=== PATIENT | male | born 1985 | race Caucasian/White ===

== ENCOUNTER 2020-02-16 08:58 | Emergency (ER) | payer BC ==
[2020-02-16] MEDS ORDERED: Dexamethasone 4 MG/ML SDV IVPUSH ONE (09:28)
[2020-02-16] MEDS ORDERED: Sodium Chloride 0.9% 10 ML Syringe FLUSH PRN (09:28)
--- NOTE | 2020-02-16 09:30 | EDM.PDOC ---
ED HPI GENERAL MEDICAL PROBLEM - General Chief Complaint: Respiratory Problem Stated Complaint: SHORTNESS OF BREATH Time Seen by Provider: 02/16/20 09:15 Source of Information: Reports: Patient History Limitations: Reports: No Limitations - History of Present Illness INITIAL COMMENTS - FREE TEXT/NARRATIVE: 34-year-old male presents to the ED due to increasing dyspnea over the last 2 to 3 days. He developed symptoms of loss of taste and smell with fever body aches and dry cough on February 04. He was tested positive for COVID-19 on the . To his coworkers at the [employer] also tested positive the same day suggesting they were exposed to the same source. He states his appetite remains quite poor due to loss of taste and smell. Cough is becoming slightly more productive. Feels more dyspneic on minimal exertion. Pulse oximetry used at home as his has asthma shows that he dips down into the 88 percentile with walking. He is 94% at rest in the ED. Still has occasional fevers and headaches. Throat is a little sore from coughing. Believes that he picked it up from the workplace is 3 coworkers became ill at the same time with COVID-19. Onset: Gradual Onset Date: 02/05/20 Duration: Day(s):, Getting Worse Location: Reports: Chest (Increasing dyspnea and increasing paroxysmal productive cough.) Quality: Reports: Other ( Dyspnea on exertion. Dyspnea) Severity: Moderate Improves with: Reports: Rest Worsens with: Reports: Movement Context: Reports: Sick Contact. Denies: Activity (Saturates with walking and movement.), Exercise, Lifting, Trauma (Workers with COVID-19), Other Associated Symptoms: Reports: Chest Pain ( Yellowish sputum), Cough, cough w sputum (Becoming more productive the last 2 to 3 days.), Fever/Chills, Loss of Appetite, Malaise (Also sense of taste and smell), Shortness of Breath, Weakness, Other. Denies: No Other Symptoms ( lateral chest pain from coughing), Confusion, Diaphoresis, Headaches, Nausea/Vomiting, Rash, Seizure, Syncope Treatments SPECTROGRAPHER: Reports: NSAIDS (Motrin and Tylenol.) - Related Data Allergies Allergy/AdvReac Type Severity Reaction Status Date / Time Penicillins Allergy Severe Hives Verified 02/16/20 09:31 Home Meds: Home Meds dexAMETHasone [Dexamethasone] 4 mg PO BID #11 tablet 02/16/20 [Rx] Social & Family History - Living Situation & Occupation Living situation: Reports: Occupation: Employed ED ROS GENERAL - Review of Systems Review Of Systems: See Below Constitutional: Reports: Fever, Chills, Malaise, Weakness, Fatigue, Decreased Appetite, Weight Loss HEENT: Reports: Throat Pain Respiratory: Reports: Shortness of Breath, Cough, Sputum. Denies: Wheezing, Pleuritic Chest Pain Cardiovascular: Reports: Chest Pain (Lower sputum the last 2 days.). Denies: Blood Pressure Problem ( Total chest discomfort from coughing), Claudication, Dyspnea on Exertion, Edema, Lightheadedness, Orthopnea, Palpitations Endocrine: Reports: Fatigue GI/Abdominal: Reports: Decreased Appetite, Other (Associated with decreased loss of sense of smell and taste) : Reports: No Symptoms Musculoskeletal: Reports: Muscle Pain Skin: Reports: No Symptoms (Generalized myalgia.) Neurological: Reports: Headache Psychiatric: Reports: No Symptoms ED EXAM, GENERAL - Physical Exam Exam: See Below Exam Limited By: No Limitations General Appearance: Alert, WD/WN, No Apparent Distress, Other (Temperature is 36.7. Heart rate is 80 in sinus respiratory is 20 with O2 sats of 94% room air BP 1 3676.) Eye Exam: Bilateral Eye: Normal Inspection, PERRL Ears: Normal TMs Throat/Mouth: Other (Uvula is slightly thickened and edematous and reddened from coughing.) Head: Atraumatic ( The oropharynx is otherwise normal.), Normocephalic Neck: Normal Inspection, Supple, Non-Tender, Full Range of Motion. No: Lymphadenopathy (L), Lymphadenopathy (R) Respiratory/Chest: Lungs Clear (Tachypnea at rest.), Normal Breath Sounds, Respiratory Distress. No: Rales, Rhonchi, Wheezing Cardiovascular: Normal Peripheral Pulses, Regular Rate, Rhythm, No Edema, No Gallop, No Murmur, No Rub Peripheral Pulses: 3+: Carotid (L), Carotid (R), Posterior Tibial (L), Posterior Tibial (R), Dorsalis Pedis (L), Dorsalis Pedis (R) GI/Abdominal: Normal Bowel Sounds, Soft, Non-Tender, No Organomegaly, No Abnor mal Bruit, No Mass, Pelvis Stable, Other (No surgical scars.) Back Exam: Normal Inspection, Full Range of Motion. No: CVA Tenderness (L), CVA Tenderness (R) Extremities: Normal Inspection, Normal Range of Motion, Non-Tender, No Pedal Edema Neurological: Alert, Oriented, CN II-XII Intact, Normal Cognition Psychiatric: Normal Affect, Normal Mood Skin Exam: Warm, Dry, Intact, Normal Color, No Rash EKG INTERPRETATION EKG Date: 02/16/20 Time: 09:37 Rhythm: NSR Rate (Beats/Min): 76 [place]: Normal P-Wave: Present QRS: Normal ST-T: Normal QT: Normal EKG Interpretation Comments: Normal ECG. Course - Vital Signs Last Recorded V/S: Last Vital Signs Temp 36.7 C 02/16/20 09:16 Pulse 79 02/16/20 10:14 Resp 18 02/16/20 10:14 BP 128/81 02/16/20 10:14 Pulse Ox 95 02/16/20 10:14 - Orders/Labs/Meds Orders: Active Orders 24 hr Category Date Time Status EKG Documentation Completion [RC] STAT Care 02/16/20 09:26 Active Peripheral IV Care [RC] . DIRECTED Care 02/16/20 09:28 Active Sodium Chloride 0.9% [Saline Flush] Med 02/16/20 09:28 Active 10 ml FLUSH ASDIRECTED PRN Peripheral IV Insertion Adult [OM.PC] Stat Oth 02/16/20 09:28 Ordered Medication Orders Sodium Chloride (Saline Flush) 10 ml FLUSH ASDIRECTED PRN PRN Reason: Keep Vein Open Last Admin: 02/16/20 09:58 Dose: 10 ml Documented by: ELIZABETH Labs: Laboratory Tests 02/16/20 02/16/20 02/16/20 Range/Units 09:55 09:55 09:55 WBC 4.70 (4.23-9.07) K/mm3 RBC 5.20 (4.63-6.08) M/mm3 Hgb 15.3 (13.7-17.5) gm/dl Hct 45.3 (40.1-51.0) % MCV 87.1 (79.0-92.2) fl MCH 29.4 (25.7-32.2) pg MCHC 33.8 (32.2-35.5) g/dl RDW Std Deviation 44.7 H (35.1-43.9) fL Plt Count 227 (163-337) K/mm3 MPV 10.9 (9.4-12.3) fl Neut % (Auto) 67.8 (34.0-67.9) % Lymph % (Auto) 22.6 (21.8-53.1) % [place] % (Auto) 7.9 (5.3-12.2) % Eos % (Auto) 1.1 (0.8-7.0) Baso % (Auto) 0.4 (0.1-1.2) % Neut # (Auto) 3.19 (1.78-5.38) K/mm3 Lymph # (Auto) 1.06 L (1.32-3.57) K/mm3 [facility] # (Auto) 0.37 (0.30-0.82) K/mm3 Eos # (Auto) 0.05 (0.04-0.54) K/mm3 Baso # (Auto) 0.02 (0.01-0.08) K/mm3 Manual Slide Review Normal smear PT 11.4 (9.7-11.7) SECONDS INR 1.07 APTT 28 (22-31) SECONDS D-Dimer, Quantitative 0.65 H (0.19-0.50) mg/L Magnesium 1.9 (1.8-2.4) mg/dl Ferritin (26-388) ng/ml Lactate Dehydrogenase 394 H (85-227) U/L CK-MB (CK-2) 9.0 H (0-3.6) ng/ml Troponin I < 0.017 (0.00-0.056) ng/mL C-Reactive Protein 7.6 H* (<1.0) mg/dL 02/16/20 Range/Units 09:55 WBC (4.23-9.07) K/mm3 RBC (4.63-6.08) M/mm3 Hgb (13.7-17.5) gm/dl Hct (40.1-51.0) % MCV (79.0-92.2) fl MCH (25.7-32.2) pg MCHC (32.2-35.5) g/dl RDW Std Deviation (35.1-43.9) fL Plt Count (163-337) K/mm3 MPV (9.4-12.3) fl Neut % (Auto) (34.0-67.9) % Lymph % (Auto) (21.8-53.1) % [facility] % (Auto) (5.3-12.2) % Eos % (Auto) (0.8-7.0) Baso % (Auto) (0.1-1.2) % Neut # (Auto) (1.78-5.38) K/mm3 Lymph # (Auto) (1.32-3.57) K/mm3 [facility] # (Auto) (0.30-0.82) K/mm3 Eos # (Auto) (0.04-0.54) K/mm3 Baso # (Auto) (0.01-0.08) K/mm3 Manual Slide Review PT (9.7-11.7) SECONDS INR APTT (22-31) SECONDS D-Dimer, Quantitative (0.19-0.50) mg/L Magnesium (1.8-2.4) mg/dl Ferritin 795 H (26-388) ng/ml Lactate Dehydrogenase (85-227) U/L CK-MB (CK-2) (0-3.6) ng/ml Troponin I (0.00-0.056) ng/mL C-Reactive Protein (<1.0) mg/dL Meds: Medications Generic Name Dose Route Start Last Admin Trade Name Freq PRN Reason Stop Dose Admin Sodium Chloride 10 ml 02/16/20 09:28 02/16/20 09:58 Saline Flush FLUSH 10 ml ASDIRECTED PRN Administration Keep Vein Open Discontinued Medications Generic Name Dose Route Start Last Admin Trade Name Freq PRN Reason Stop Dose Admin Dexamethasone 6 mg 02/16/20 09:28 02/16/20 09:59 Dexamethasone IVPUSH 02/16/20 09:29 6 mg ONETIME ONE Administration - Radiology Interpretation Free Text/Narrative:: 34-year-old male presents to the ED for evaluation of increasing dyspnea and cough with particularly shortness of breath on exertion. He states he developed symptoms of COVID-19 on January 04 and was proved positive by testing on January 08. He has been self quarantined at home away from his family members since that time. Over the last 48 hours she is developed increasing dyspnea on minimal exertion and slightly increased productive cough. Continue use Motrin and Aminofen on a as needed basis. O2 sats are 94% on room air at rest. Desaturates to 88% with exertion. Lung sounds clear to auscultation percussion. Plan routine labs to be done including d-dimer ECG chest x-ray CRP and LDH. Will have a saline lock started for blood draw. Will give dexamethasone 6 mg IV. - Re-Assessments/Exams Free Text/Narrative Re-Assessment/Exam: 02/16/20 10:25 White count is normal at 4.70. Differential shows 68% neutrophils and 23% lymphocytes. Hemoglobin is 15.3 with hematocrit of 45.3. Platelet count 227,000. Chest x-ray done portably reveals diffuse infiltrates throughout all lung lopez compatible with a diffuse viral pneumonitis which correlates with COVID-19 illness. 02/16/20 10:43 PT is 11.4 with an INR of 1.07. PTT is 28 all essentially normal d-dimer is slightly elevated at 0.65 02/16/20 11:52 Magnesium is 1.9. Serum ferritin is markedly elevated at 795. LDH is elevated at 394. CK-MB fraction is elevated at 9.0 however the troponin I is less than 0.017. C-reactive protein is elevated at 7.6. O2 sats have remained at 94% on room air. Of course he desaturates on exertion. Plan I am going to allow him to go home. He will be placed on dexamethasone or milligrams twice daily morning and supper for the next 5 days as he is near the tail end of his illness. Departure - Departure Time of Disposition: 12:14 Disposition: Home, Self-Care 01 Condition: Fair Clinical Impression: COVID-19 determined by clinical diagnostic criteria, Viral pneumonia - Discharge Information *PRESCRIPTION DRUG MONITORING PROGRAM REVIEWED*: Not Applicable *COPY OF PRESCRIPTION DRUG MONITORING REPORT IN PATIENT CLARY: Not Applicable Prescriptions: dexAMETHasone [Dexamethasone] 4 mg PO BID #11 tablet Instructions: COVID-19 Frequently Asked Questions, COVID-19: How to Protect Yourself and Others - CDC Referrals: PCP,None [Primary Care Provider] - Forms: ED Department Discharge Additional Instructions: Evaluation in the emergency room today in regards to worsening shortness of breath on exertion. Known diagnosis of COVID-19 illness diagnosed on February 08. Symptoms started around February 04 indicating that you are at the terminal or end of your illness. O2 sats stayed around 94% while in the ED but of course desaturate down to 88% on exertion. X-ray confirms bilateral viral pneumonia. Lab tests revealed expected findings that correlate with COVID-19 illness but no signs of heart related illness or increased clotting problems. Suggest treatment to be conservative with continued activity as tolerated. You were given a dose of dexamethasone intravenously while in the ED. I am going to place her on dexamethasone steroid 4 mg twice daily for the next 5 days with the next tablet due at bedtime tonight.. Expect gradual improvement over the next 3 to 5 days. Follow-up with personal care physician if any further problems occur. Sepsis Event Note (ED) - Evaluation Sepsis Screening Result: No Definite Risk - Focused Exam Vital Signs: Vital Signs Temp Pulse Resp BP Pulse Ox 02/16/20 10:14 79 18 128/81 95 02/16/20 09:16 36.7 C 80 20 136/76 94 L - My Orders Last 24 Hours: My Active Orders 02/16/20 09:26 EKG Documentation Completion [RC] STAT 02/16/20 09:28 Peripheral IV Care [RC] . DIRECTED Sodium Chloride 0.9% [Saline Flush] 10 ml FLUSH ASDIRECTED PRN Peripheral IV Insertion Adult [OM.PC] Stat - Assessment/Plan Last 24 Hours: My Active Orders 02/16/20 09:26 EKG Documentation Completion [RC] STAT 02/16/20 09:28 Peripheral IV Care [RC] . DIRECTED Sodium Chloride 0.9% [Saline Flush] 10 ml FLUSH ASDIRECTED PRN Peripheral IV Insertion Adult [OM.PC] Stat
--- NOTE | 2020-02-16 10:43 | CR ---
Chest: Portable view of the chest was obtained. Comparison: No prior chest imaging. Heart size and mediastinum are normal. Diffuse patchy areas of increased density on both sides of the chest compatible with pneumonia. Bony structures are grossly intact. Impression: 1. Diffuse increased density on both sides of the chest compatible with pneumonia. Given the history of positive COVID-19, findings are most likely due to viral pneumonia. Diagnostic code #5 This report was dictated in MDT
== END 2020-02-16 12:41 | disposition home or self-care (01) ==
LOC: JD.ED 08:58
DX: U07.1 COVID-19 (principal); J12.89 Other viral pneumonia; Z88.0 Allergy status to penicillin
CPT/HCPCS: 36415; 71045; 82553; 82728; 83615; 83735; 84484; 85025; 85379; 85610; 85730; 86140; 93005; 96374; 99285; J1100; 93010; 99284